=== PATIENT | female | born 1995 | race Caucasian/White ===

== ENCOUNTER 2018-07-20 08:19 | Day surgery (SDC) | payer BC ==
[~2018-07-20 08:19] MED LIST: CEFAZOLIN 2 GM/50 ML (PMX) 50 ML IVPB
[2018-07-20] MEDS: LACTATED RINGER'S 1,000 ML IV (09:18)
[2018-07-20 09:26] LABS: ADD MAN DIFF? NO
[2018-07-20 09:32] LABS: BASOPHILS % 0.4 % (0.0-2.0); EOSINOPHILS # 0.1 10^3/ul (0.0-0.5); EOSINOPHILS % 0.9 % (0.0-7.0); HEMATOCRIT 41.4 % (37.0-47.0); HEMOGLOBIN 14.1 g/dl (12.0-16.0); LYMPHOCYTES # 2.2 10^3/ul (0.8-2.9); LYMPHOCYTES % 38.1 % (15.0-51.0); MEAN CORPUSCULAR HGB CONC 34.1 g/dl (32.0-37.0); MEAN PLATELET VOLUME 11.7 fl (7.4-10.4); MONOCYTE # 0.4 10^3/ul (0.3-0.9); NEUTROPHILS % 53.4 % (39.0-77.0); PLATELET COUNT 258 10^3/UL (140-415); RED BLOOD COUNT 4.55 10^6/ul (4.20-5.40); RED CELL DISTRIBUTION WIDTH 11.7 % (11.5-14.5)
[2018-07-20 09:32] LABS: WHITE BLOOD COUNT 5.7 10^3/ul (4.8-10.8)
[2018-07-20 09:44] LABS: ADD UMIC YES; UR ASCORBIC ACID NEGATIVE (NEGATIVE); UR BACTERIA FEW /HPF (NONE SEEN); UR BILIRUBIN (Dip) NEGATIVE (NEGATIVE); UR BLOOD (Dip) NEGATIVE (NEGATIVE); UR CLARITY SLIGHTLY CLOUDY (CLEAR); UR COLOR YELLOW (YELLOW); UR GLUCOSE (Dip) NEGATIVE (NEGATIVE); UR KETONES (Dip) NEGATIVE (NEGATIVE); UR LEUKOCYTE ESTERASE (Dip) 2+ Leu/ul (NEGATIVE); UR MUCUS FEW /HPF (NONE SEEN); UR NITRITE (Dip) NEGATIVE (NEGATIVE); UR RBC 5 /HPF (0-5); UR SPECIFIC GRAVITY (Dip) 1.021 (1.003-1.030); UR SQUAMOUS EPITHELIAL CELL MODERATE /HPF (FEW); UR TOTAL PROTEIN (Dip) NEGATIVE (NEGATIVE); UR UROBILINOGEN (Dip) NEGATIVE (NEGATIVE); UR WBC 1 /HPF (0-5)
[2018-07-20] MEDS ORDERED: BUPIVACAINE 0.25% (MPF) 30 ML INJ (10:07)
[2018-07-20] MEDS ORDERED: MIDAZOLAM 1 MG/ML 2 ML INJ (10:18)
[2018-07-20] MEDS ORDERED: LIDOCAINE 2% (SDV) 5 ML INJ (10:22)
[2018-07-20] MEDS ORDERED: FENTAnyl 50 MCG/ML VIAL (10:22)
[2018-07-20] MEDS ORDERED: PROPOFOL 20 ML (10:22)
[2018-07-20] MEDS ORDERED: OXYCODONE/ACETAMINOPHEN (5/325) TAB PO ×2 (10:30)
[2018-07-20] MEDS ORDERED: ONDANSETRON 4 MG INJ IV (10:30)
[2018-07-20] MEDS ORDERED: HYDROmorphONE 1 MG/5 ML IV SYRINGE IV ×3 (10:30)
[2018-07-20] MEDS ORDERED: ROPIVACAINE 0.5 % 30 ML VIAL (10:31)
[2018-07-20] MEDS ORDERED: CEFAZOLIN 1 GM INJ (10:36)
[2018-07-20] MEDS ORDERED: ONDANSETRON 4 MG INJ (10:37)
[2018-07-20] MEDS ORDERED: BACITRACIN/POLYMYXIN 28.35 GM OINT TOP (11:19)
== END 2018-07-20 14:07 | disposition home or self-care (01) ==
LOC: SDS 08:19
DX: S64.491D Injury of digital nerve of left index finger, subsequent encounter (principal); W26.0XXD Contact with knife, subsequent encounter
CPT/HCPCS: 64910; 81001; 84703; 85025